=== PATIENT | female | born 1975 | race Caucasian/White ===

== ENCOUNTER → 2018-06-01 | Outpatient (CLI) | payer OTHER ==
--- NOTE | 2018-06-01 15:35 | MM ---
Reason for exam: screening (asymptomatic). Last mammogram was performed 1 year and 8 months ago. History: Family history of breast cancer in sister at age 50 and breast cancer in aunt. Took hormonal contraceptives for 10 months. Physical Findings: A clinical breast exam by your physician is recommended on an annual basis and results should be correlated with mammographic findings. MG Screening Mammo w CAD Bilateral CC and MLO view(s) were taken. Prior study comparison: September 17, 2016, bilateral MG screening mammo w CAD. September 17, 2015, left breast MG 3d work up w/cad LT. There are scattered fibroglandular densities. No significant changes when compared with prior studies. ASSESSMENT: Negative, BI-RAD 1 RECOMMENDATION: Routine screening mammogram of both breasts in 1 year.
== END | disposition home or self-care (01) ==
LOC: RADMAMWWP 07:02
PROVIDERS: ATTEND Family Medicine
DX: Z12.31 Encounter for screening mammogram for malignant neoplasm of breast (principal)
CPT/HCPCS: 77067

== ENCOUNTER → 2020-01-03 | Outpatient (CLI) | payer OTHER ==
--- NOTE | 2020-01-07 09:06 | MM ---
Reason for exam: screening (asymptomatic). Last mammogram was performed 1 year and 7 months ago. History: Family history of breast cancer in sister at age 50 and breast cancer in aunt. Took hormonal contraceptives for 10 months. Physical Findings: A clinical breast exam by your physician is recommended on an annual basis and results should be correlated with mammographic findings. MG 3D Screening Mammo W/Cad Bilateral CC and MLO view(s) were taken. Prior study comparison: June 01, 2018, bilateral MG screening mammo w CAD. September 17, 2016, bilateral MG screening mammo w CAD. The breast tissue is heterogeneously dense. This may lower the sensitivity of mammography. No significant changes when compared with prior studies. ASSESSMENT: Benign, BI-RAD 2 RECOMMENDATION: Routine screening mammogram of both breasts in 1 year.
== END | disposition home or self-care (01) ==
LOC: RADMAMWWP 10:02
PROVIDERS: ATTEND Family Medicine
DX: Z12.31 Encounter for screening mammogram for malignant neoplasm of breast (principal)
CPT/HCPCS: 77063; 77067

== ENCOUNTER → 2020-10-01 | Outpatient (CLI) | payer OTHER ==
--- NOTE | 2020-10-01 11:14 | XR ---
EXAMINATION TYPE: XR abdomen 2V DATE OF EXAM: 10/01/2020 CLINICAL DATA: 45-year-old female intermittent right flank pain, R1011, R350, N200, [id number] RUQ PAIN, MICTURITION, STONE, YCH COMPARISON: None FINDINGS: Lung bases are clear. No evidence for free intraperitoneal air. No dilated small bowel or air-fluid levels. Scattered air and stool throughout the colon extending distally to the rectum. There is mild overall stool burden. A couple phleboliths within the left side of the pelvis. Bowel content partially obscures the renal s hadows. Possible splenomegaly at 15.9 cm. Dextroconvex scoliosis of the lumbar spine. IMPRESSION: 1. No evidence of bowel obstruction or free intraperitoneal air. 2. A couple calcifications in the left side of the pelvis, likely phleboliths. 3. Possible underlying splenomegaly. Correlate with physical exam findings and ultrasound if indicate d.
== END | disposition home or self-care (01) ==
LOC: RADXRYALE 10:23
PROVIDERS: ATTEND Physician Assistant Medical
DX: R10.11 Right upper quadrant pain (principal); R35.0 Frequency of micturition; N20.0 Calculus of kidney; Z87.442 Personal history of urinary calculi
CPT/HCPCS: 74019

== ENCOUNTER → 2020-10-03 | Outpatient (CLI) | payer OTHER ==
--- NOTE | 2020-10-03 08:28 | US ---
EXAMINATION TYPE: US abdomen complete DATE OF EXAM: 10/03/2020 COMPARISON: NONE CLINICAL HISTORY: 45-year-old female R10.11 Right upper quadrant pain. Patient has pain near the end of her rib cage on both sides. TECHNIQUE: Multiple sonographic images of the abdomen are obtained. FINDINGS: EXAM MEASUREMENTS: Liver Length: 20.1 cm Gallbladder Wall: 0.2 cm CBD: 0.7 cm Spleen: 13.5 cm Right Kidney: 10.0 x 4.5 x 4.8 cm Left Kidney: 10.0 x 4.6 x 6.2 cm Mother Repairer notes:large habitus and bowel gas limits exam Pancreas: Suboptimal visualization of the pancreatic tail due to shadowing from bowel gas. Liver: difficult to penetrate, possibly due to large patient body habitus. No obvious focal liver le alexander though assessment is limited. Gallbladder: wnl Evidence for sonographic Mccain's sign: no CBD: wnl Spleen: Borderline enlarged, possible calcified granulomas. Right Kidney: wnl Left Kidney: limited views appear wnl Upper IVC: wnl Abd Aorta: limited views IMPRESSION: 1. Bile duct mildly dilated at 7 mm. Correlate with alkaline phosphatase and bilirubin levels to excl ude early biliary obstruction. 2. Limited exam due to patient body habitus. 3. Hepatomegaly (20.1 cm). Borderline splenomegaly (13.5 cm). Old calcified granulomas in the spleen. 4. No gallstones or acute cholecystitis.
== END | disposition home or self-care (01) ==
LOC: RADUSWWP 06:57
PROVIDERS: ATTEND Family Medicine
DX: K83.8 Other specified diseases of biliary tract (principal); R16.2 Hepatomegaly with splenomegaly, not elsewhere classified; Z87.442 Personal history of urinary calculi
CPT/HCPCS: 76700

== ENCOUNTER → 2021-01-21 | Outpatient (CLI) | payer OTHER ==
--- NOTE | 2021-01-21 12:50 | US ---
EXAMINATION TYPE: US abdomen complete DATE OF EXAM: 01/21/2021 COMPARISON: 10/03/2020 CLINICAL HISTORY: 45-year-old female R10.11 R16.1 [id number]. Follow up. Generalized abdominal pain. TECHNIQUE: Multiple sonographic images of the abdomen are obtained. FINDINGS: EXAM MEASUREMENTS: Liver Length: 17.8 cm Gallbladder Wall: 0.2 cm CBD: 0.5 cm Spleen: 12.3 cm Right Kidney: 10.7 x 5.5 x 4.6 cm Left Kidney: 10.7 x 4.5 x 5.6 cm [employer]iconductor Dies Loader notes:limited due to patient body habitus and overlying bowel gas Pancreas: Only a small portion of the pancreatic body is visualized. The remainder is obscured by bow el gas shadowing. Liver: Borderline in size. Appears slightly echogenic and coarse. Gallbladder: Junctional fold seen. No abnormal distention, wall thickening, pericholecystic fluid, o r shadowing calculi. Evidence for sonographic Mccain's sign: neg CBD: wnl Spleen: Numerous calcified granulomas. Kidneys: No hydronephrosis. Upper IVC: wnl Abd Aorta: Proximal and mid portions obscured by overlying bowel gas IMPRESSION: 1. Technical exam limitations due to bowel gas and patient body habitus. 2. Borderline sized liver (17.8 cm) with suspected mild hepatic steatosis. 3. No gallstones or biliary ductal dilatation. 4. Evidence of prior granulomatous disease with multiple calcified granulomas in the spleen. 5. The previous mild biliary ductal dilatation is no longer appreciated.
== END ==
LOC: RADUSWWP 09:42
PROVIDERS: ATTEND Family Medicine
DX: D73.89 Other diseases of spleen (principal)
CPT/HCPCS: 76700

== ENCOUNTER → 2021-02-18 | Outpatient (CLI) | payer OTHER ==
--- NOTE | 2021-02-20 09:52 | MM ---
Reason for exam: screening (asymptomatic). Last mammogram was performed 1 year and 2 months ago. History: Family history of breast cancer in sister at age 50 and breast cancer in aunt. Took hormonal contraceptives for 10 months. Physical Findings: A clinical breast exam by your physician is recommended on an annual basis and results should be correlated with mammographic findings. MG 3D Screening Mammo W/Cad Bilateral CC and MLO view(s) were taken. Prior study comparison: January 03, 2020, bilateral MG 3d screening mammo w/cad. June 01, 2018, bilateral MG screening mammo w CAD. The breast tissue is heterogeneously dense. This may lower the sensitivity of mammography. There is no discrete abnormality. No significant changes when compared with prior studies. ASSESSMENT: Negative, BI-RAD 1 RECOMMENDATION: Routine screening mammogram of both breasts in 1 year.
== END | disposition home or self-care (01) ==
LOC: RADMAMWWP 09:08
PROVIDERS: ATTEND Family Medicine
DX: Z12.31 Encounter for screening mammogram for malignant neoplasm of breast (principal); Z80.3 Family history of malignant neoplasm of breast
CPT/HCPCS: 77063; 77067

== ENCOUNTER → 2021-03-25 | Outpatient (CLI) | payer OTHER ==
--- NOTE | 2021-03-25 09:31 | XR ---
EXAMINATION TYPE: XR chest 2V DATE OF EXAM: 03/25/2021 COMPARISON: NONE HISTORY: Chest pain TECHNIQUE: Frontal and lateral views of the chest are obtained. FINDINGS: There is no focal air space opacity. No evidence for pneumothorax. No pleural effusion. Stable granuloma right midlung zone. The cardiac silhouette size is within normal limits. The osseous structures are grossly intact. IMPRESSION: 1. No acute cardiopulmonary process.
== END | disposition home or self-care (01) ==
LOC: RADXRYALE 09:18
PROVIDERS: ATTEND Physician Assistant Medical
DX: R07.9 Chest pain, unspecified (principal)
CPT/HCPCS: 71046

== ENCOUNTER 2021-03-31 10:37 | Observation (INO) | payer OTHER ==
[2021-03-31] MEDS ORDERED: MAGNESIUM SULFATE-D5W PMX 1 GM in DEXTROSE/WATER 1 100ML.BAG IVPB STA (11:03)
[2021-03-31] MEDS ORDERED: IPRATROPIUM-ALBUTEROL 3 ML NEB INHALATION STA (11:03)
[2021-03-31] MEDS ORDERED: predniSONE 20 MG TAB PO STA (11:03)
[2021-03-31] MEDS ORDERED: SODIUM CHLORIDE 0.9% 1,000 ML IV STA (11:03)
--- NOTE | 2021-03-31 11:08 | ED ---
SOB HPI - General Chief Complaint: Shortness of Breath Stated Complaint: Asthma/low o2 Time Seen by Provider: 03/31/21 10:43 Source: patient Mode of arrival: ambulatory Limitations: no limitations - History of Present Illness Initial Comments: 45-year-old female with history of asthma presents to the emergency department with a chief complaint of shortness of breath. States about 1 month ago her whole household had developed coitus she believes that she likely had it as well. States since then, she has developed multiple exacerbations of her asthma symptoms. She reports a bronchospastic cough that will not resolve. Also reports increased exertional dyspnea and wheezing. States that she has seen her primary care physician who gave her a 2 week prednisone taper along with a Z-Elder that was followed by 10 day course of doxycycline. She reports that she feels better for several days after the steroids but then her symptoms returned. She reports feeling chest tightness from the wheezing and her bronchospastic cough. States that she went to her primary care office this morning and had an oxygen saturation of 88% and was advised to come to the emergency department for PE rule out. Patient states while she was driving to the ED, she also had another nebulized treatment in her car - Related Data Home Medications Medication Instructions Recorded Confirmed Fluticasone/Salmeterol [Advair 1 puff INHALATION RT-BID 09/23/15 03/31/21 250-50 Diskus] Albuterol Nebulized [Ventolin 2.5 mg INHALATION RT-QID PRN 03/31/21 03/31/21 Nebulized] Ascorbic Acid [Vitamin C] 1,000 mg PO DAILY 03/31/21 03/31/21 Cholecalciferol [Vitamin D3 (25 25 mcg PO DAILY 03/31/21 03/31/21 Mcg = 1000 Iu)] Doxycycline Monohydrate [Monodox] 100 mg PO BID 03/31/21 03/31/21 Echinacea 500 mg PO DAILY 03/31/21 03/31/21 Zinc 50 mg PO DAILY 03/31/21 03/31/21 Allergies Allergy/AdvReac Type Severity Reaction Status Date / Time Iodinated Contrast Media Allergy Rash/Hives Verified 03/31/21 11:07 [Iodinated Contrast Media - IV Dye] Review of Systems ROS Statement: Those systems with pertinent positive or pertinent negative responses have been documented in the HPI. ROS Other: All systems not noted in ROS Statement are negative. Past Medical History Past Medical History: Asthma Additional Past Medical History / Comment(s): OCC MINOR ASTHMA W/ AN URI, ALLERGIES. LT SIDE PELVIC PAIN ONGOING CURRENTLY. History of Any Multi-Drug Resistant Organisms: None Reported Past Surgical History: Hysterectomy, Tonsillectomy, Tubal Ligation, Uterine Ablation Additional Past Surgical History / Comment(s): ABLATION 2007. LASIK EYES. Past Anesthesia/Blood Transfusion Reactions: No Reported Reaction Past Psychological History: No Psychological Hx Reported Smoking Status: Never smoker Past Alcohol Use History: Occasional Past Drug Use History: None Reported - Past Family History Sister(s) Family Medical History: Cancer Brother(s) Family Medical History: Cancer Mother Additional Family Medical History / Comment(s): BRAIN ANEURYSM General Exam Limitations: no limitations General appearance: alert, in no apparent distress, obese Head exam: Present: atraumatic, normocephalic, normal inspection Eye exam: Present: normal appearance, PERRL, EOMI Pupils: Present: normal accommodation ENT exam: Present: normal exam, normal oropharynx, mucous membranes moist, TM's normal bilaterally, normal external ear exam Neck exam: Present: normal inspection, full ROM. Absent: tenderness, lymphadenopathy Respiratory exam: Present: wheezes (Diffuse bilateral wheezing). Absent: rales, rhonchi, stridor, chest wall tenderness, accessory muscle use Cardiovascular Exam: Present: regular rate, normal rhythm, normal heart sounds. Absent: systolic murmur GI/Abdominal exam: Present: soft. Absent: distended, tenderness, guarding Extremities exam: Present: normal inspection, full ROM, normal capillary refill. Absent: tenderness, pedal edema, joint swelling Back exam: Present: normal inspection, full ROM. Absent: tenderness, CVA tenderness (R), CVA tenderness (L) Neurological exam: Present: alert, oriented X3 Psychiatric exam: Present: normal affect, normal mood Skin exam: Present: warm, dry, intact, normal color Course Vital Signs 03/31/21 03/31/21 03/31/21 10:39 11:15 11:17 Temperature 97.9 F Pulse Rate 83 86 Respiratory 24 22 20 Rate Blood Pressure 149/91 O2 Sat by Pulse 98 Oximetry 03/31/21 03/31/21 03/31/21 11:30 11:31 12:42 Temperature Pulse Rate 81 84 88 Respiratory 22 18 22 Rate Blood Pressure 136/65 140/73 O2 Sat by Pulse 97 98 Oximetry Medical Decision Making - Medical Decision Making 45-year-old female with history of asthma presents emergency Department with a chief complaint of shortness of breath. On physical examination, patient appears to be short of breath with diffuse bilateral wheezing. Chest x-ray reveals bronchitis with no signs of pneumonia. Laboratory work is unremarkable. Negative d-dimer. Her vital signs are within normal limits. She is saturating well above 95% on room air the whole time. Patient was given DuoNeb treatments along with 60 mg of prednisone. Also 1 g of IV mag sulfate. On reevaluation, no significant improvement in symptoms. She continues to wheeze. She did test positive for coronavirus on PCR, however I suspect this is a residual positive test because she had covid like symptoms including a fever over one month ago. I spoke to who will admit. Albtuterol q4hr prn. Case discussed with Dr Nader logan on consult - Lab Data Result diagrams: 03/31/21 11:20 03/31/21 11:20 Lab Results 03/31/21 03/31/21 03/31/21 Range/Units 11:20 11:20 11:20 WBC 9.5 (3.8-10.6) k/uL RBC 4.71 (3.80-5.40) m/uL Hgb 13.9 (11.4-16.0) gm/dL Hct 42.3 (34.0-46.0) % MCV 89.9 (80.0-100.0) fL MCH 29.6 (25.0-35.0) pg MCHC 33.0 (31.0-37.0) g/dL RDW 13.3 (11.5-15.5) % Plt Count 227 (150-450) k/uL MPV 7.6 Neutrophils % 72 % Lymphocytes % 15 % Monocytes % 5 % Eosinophils % 6 % Basophils % 1 % Neutrophils # 6.9 (1.3-7.7) k/uL Lymphocytes # 1.5 (1.0-4.8) k/uL Monocytes # 0.5 (0-1.0) k/uL Eosinophils # 0.5 (0-0.7) k/uL Basophils # 0.1 (0-0.2) k/uL PT 10.0 (9.0-12.0) sec INR 0.9 (<1.2) APTT 21.9 L (22.0-30.0) sec D-Dimer 0.27 (<0.60) mg/L FEU Sodium 137 (137-145) mmol/L Potassium 4.3 (3.5-5.1) mmol/L Chloride 104 (98-107) mmol/L Carbon Dioxide 26 (22-30) mmol/L Anion Gap 7 mmol/L BUN 15 (7-17) mg/dL Creatinine 0.80 (0.52-1.04) mg/dL Est GFR (CKD-EPI)AfAm >90 (>60 ml/min/1.73 sqM) Est GFR (CKD-EPI)NonAf 90 (>60 ml/min/1.73 sqM) Glucose 90 (74-99) mg/dL Calcium 9.9 (8.4-10.2) mg/dL Magnesium 1.8 (1.6-2.3) mg/dL Total Bilirubin 0.4 (0.2-1.3) mg/dL AST 20 (14-36) U/L ALT 16 (4-34) U/L Alkaline Phosphatase 53 (38-126) U/L Troponin I (0.000-0.034) ng/mL Total Protein 7.2 (6.3-8.2) g/dL Albumin 4.2 (3.5-5.0) g/dL Influenza Type A (PCR) (Not Detectd) Influenza Type B (PCR) (Not Detectd) RSV (PCR) (Not Detectd) SARS-CoV-2 (PCR) (Not Detectd) 03/31/21 03/31/21 Range/Units 11:20 11:20 WBC (3.8-10.6) k/uL RBC (3.80-5.40) m/uL Hgb (11.4-16.0) gm/dL Hct (34.0-46.0) % MCV (80.0-100.0) fL MCH (25.0-35.0) pg MCHC (31.0-37.0) g/dL RDW (11.5-15.5) % Plt Count (150-450) k/uL MPV Neutrophils % % Lymphocytes % % Monocytes % % Eosinophils % % Basophils % % Neutrophils # (1.3-7.7) k/uL Lymphocytes # (1.0-4.8) k/uL Monocytes # (0-1.0) k/uL Eosinophils # (0-0.7) k/uL Basophils # (0-0.2) k/uL PT (9.0-12.0) sec INR (<1.2) APTT (22.0-30.0) sec D-Dimer (<0.60) mg/L FEU Sodium (137-145) mmol/L Potassium (3.5-5.1) mmol/L Chloride (98-107) mmol/L Carbon Dioxide (22-30) mmol/L Anion Gap mmol/L BUN (7-17) mg/dL Creatinine (0.52-1.04) mg/dL Est GFR (CKD-EPI)AfAm (>60 ml/min/1.73 sqM) Est GFR (CKD-EPI)NonAf (>60 ml/min/1.73 sqM) Glucose (74-99) mg/dL Calcium (8.4-10.2) mg/dL Magnesium (1.6-2.3) mg/dL Total Bilirubin (0.2-1.3) mg/dL AST (14-36) U/L ALT (4-34) U/L Alkaline Phosphatase (38-126) U/L Troponin I <0.012 (0.000-0.034) ng/mL Total Protein (6.3-8.2) g/dL Albumin (3.5-5.0) g/dL Influenza Type A (PCR) Not Detected (Not Detectd) Influenza Type B (PCR) Not Detected (Not Detectd) RSV (PCR) Not Detected (Not Detectd) SARS-CoV-2 (PCR) Detected A (Not Detectd) - EKG Data EKG Comments: Inverted T waves in lead 3, sinus rhythm Tripped over 85, IN 166, QRS 92, QTc 425. Disposition Clinical Impression: Asthma exacerbation, COVID-19 Disposition: ADMITTED IP TO THIS HOSP Condition: Good Is patient prescribed a controlled substance at d/c from ED?: No Referrals: Rony Deras DO [Primary Care Provider] - 1-2 days Time of Disposition: 12:57
[2021-03-31 11:47] LABS: Basophils # (A) 0.1 k/uL (0-0.2); Basophils % (A) 1 %; Eosinophils # (A) 0.5 k/uL (0-0.7); Eosinophils % (A) 6 %; HCT 42.3 % (34.0-46.0); HGB 13.9 gm/dL (11.4-16.0); Lymphocytes # (A) 1.5 k/uL (1.0-4.8); Lymphocytes % (A) 15 %; MCH 29.6 pg (25.0-35.0); MCV 89.9 fL (80.0-100.0); Mean Platelet Volume 7.6; Monocytes # (A) 0.5 k/uL (0-1.0); Monocytes % (A) 5 %; Neutrophils # (A) 6.9 k/uL (1.3-7.7); Neutrophils % (A) 72 %; Platelet Count 227 k/uL (150-450); RBC 4.71 m/uL (3.80-5.40); RDW 13.3 % (11.5-15.5); WBC 9.5 k/uL (3.8-10.6)
--- NOTE | 2021-03-31 12:00 | XR ---
EXAMINATION TYPE: XR chest 2V DATE OF EXAM: 03/31/2021 COMPARISON: 03/25/2021 TECHNIQUE: PA and lateral views submitted. HISTORY: Cough FINDINGS: The lungs are clear and there is no pneumothorax, pleural effusion, or focal pneumonia. Coarsened i nterstitium correlate for bronchitis or interstitial pneumonitis. Persistent a nodule in the right up per lobe measuring 5 mm. No interstitial edema or pneumothorax. Heart size normal. Hypertrophic and d egenerative change of the spine. IMPRESSION: 1. Correlate for bronchitis or interstitial pneumonitis. 2. There is a 5 mm right upper lobe pulmonary nodule stable since 06/23/2017 and therefore likely benig n.
[2021-03-31 12:05] LABS: ALT 16 U/L (4-34); AST 20 U/L (14-36); African American GFR (CKD) >90 (>60 ml/min/1.73 sqM); Albumin 4.2 g/dL (3.5-5.0); Alkaline Phosphatase 53 U/L (38-126); Anion Gap 7 mmol/L; Blood Urea Nitrogen 15 mg/dL (7-17); Calcium 9.9 mg/dL (8.4-10.2); Carbon Dioxide 26 mmol/L (22-30); Chloride 104 mmol/L (98-107); D-Dimer 0.27 mg/L FEU (<0.60); Glucose 90 mg/dL (74-99); INR 0.9 (<1.2); Magnesium 1.8 mg/dL (1.6-2.3); Non-African American GFR(CKD) 90 (>60 ml/min/1.73 sqM); Potassium 4.3 mmol/L (3.5-5.1); Sodium 137 mmol/L (137-145); Total Bilirubin 0.4 mg/dL (0.2-1.3); Total Protein 7.2 g/dL (6.3-8.2)
[2021-03-31 12:27] LABS: Partial Thromboplastin Time 21.9 sec (22.0-30.0)
[2021-03-31] MEDS ORDERED: NALOXONE 0.4 MG/ML 1 ML VIAL IV PRN (12:52)
[2021-03-31] MEDS ORDERED: LORazepam 2 MG/ML INJ IV PRN (12:52)
[2021-03-31] MEDS ORDERED: ACETAMINOPHEN TAB 325 MG TAB PO PRN (12:52)
[2021-03-31] MEDS ORDERED: ALBUTEROL NEBULIZED 2.5 MG/3 ML INHALATION PRN (12:54)
[2021-03-31] MEDS: SODIUM CHLORIDE 0.9% 1,000 ML IV SCH (13:45)
[2021-03-31] MEDS: ALBUTEROL HFA INHALER INHALATION PRN ×3 (15:20→22:45)
[2021-03-31] MEDS ORDERED: HYDROcodone/APAP 5-325MG 1 EACH TAB PO PRN (20:20)
[2021-03-31] MEDS ORDERED: ALPRAZolam 0.25 MG TAB PO PRN (20:20)
--- NOTE | 2021-03-31 21:13 | HP ---
HISTORY AND PHYSICAL DATE OF SERVICE: 03/31/2021. CHIEF COMPLAINT: Shortness of breath and cough. HISTORY OF PRESENT ILLNESS: This 45-year-old woman with a past medical history of bronchial asthma, allergies, tonsillectomy, being followed by Dr. Deras and Dr. Elizondo in the outpatient setting, was not feeling well over the past one month. Prior to that, the patient apparently had mild intermittent bronchial asthma, well controlled and being followed by Dr. Elizondo with yearly checkup. About 1 month ago apparently, the patient's two kids got Covid 19 apparently from school and had some snuffles. Subsequently patient had increased shortness of breath and cough and sputum and wheezing. Patient's also has since minimal infection. Multiple members of family tested for Covid 19. Patient was never tested for Covid 19. During the past month, the patient finished 2 courses of antibiotics including Z-Elder and also 10 days of doxycycline. Patient also had a tapering dose of steroids. Because of lack of improvement and increased shortness of breath, patient came to [facility] and was admitted for further evaluation and treatment. The pulse ox was found to be 88% on room air today. The CBC and BMP, CMP was within normal limits and Covid 19 was positive. A chest x-ray which was done in the ER which was reviewed personally by me showed 5 mm right upper lobe pulmonary nodule and as well as possibly bilateral infiltrates suggestive of Covid 19 pneumonia. There is no history of fever, rigors. No history of headache, loss of consciousness, seizures at this time. PAST MEDICAL HISTORY: Mild intermittent bronchial asthma with allergies, hysterectomy, tonsillectomy, tubal ligation. MEDICATIONS: Medications prior to admission include: Zinc, Advair b.i.d., echinacea, doxycycline, cholecalciferol, ascorbic acid, albuterol, Habitrol. ALLERGIES: IODINATED CONTRAST DYES. FAMILY HISTORY: History of cancer and brain aneurysm. REVIEW OF SYSTEMS: ENT: No diminished vision. No diminished hearing. CARDIOVASCULAR: No angina or palpitations. RESPIRATION as mentioned earlier. GI no nausea or vomiting. : No dysuria. NERVOUS SYSTEM: No numbness. ALLERGY/IMMUNOLOGY: No asthma or hayfever. HEMATOLOGY/ONCOLOGY: No history of anemia. ENDOCRINE: No history of diabetes or hypothyroidism. CONSTITUTIONAL: As mentioned earlier. DERMATOLOGY: Negative. RHEUMATOLOGY :Negative. PSYCHIATRIC: As mentioned earlier. PHYSICAL EXAMINATION: Alert and oriented x3. Pulse 93. Blood pressure 150/86, respirations 16, temperature 98.6, pulse ox 97% on room air. HEENT: Conjunctivae normal. Oral mucosa moist. NECK is no jugular venous distention. No carotid bruit. No lymph node enlargement. CARDIOVASCULAR system: S1, S2. No S3, no S4. RESPIRATION: Breath sounds diminished in the bases. A few scattered rhonchi and crackles. Expiratory wheezing also present. ABDOMEN: Soft, nontender. No mass palpable. LEGS: No edema. No swelling. NERVOUS SYSTEM: Higher function as mentioned earlier. Moves all 4 limbs. No focal motor or sensory deficits. LYMPHATICS: No lymph nodes palpable in the neck, axillae or groin. SKIN: Some bruises present. JOINTS: No active deforming arthropathy. LABS: CBC within normal limits and D-dimer is 0.27. APTT 21.9. CBC, CMP within normal limits. Covid test is positive. ASSESSMENT: 1. Acute bronchial asthma acute exacerbation with possible acute interstitial pneumonia. 2. Possible acute COVID-19 infection with acute bilateral interstitial pneumonia with acute hypoxic respiratory failure. 3. History of chronic intermittent bronchial asthma and allergies. 4. Hysterectomy. 5. Tonsillectomy. 6. History of uterine ablation. 7. Obesity with body mass index 47. 8. FULL CODE. RECOMMENDATIONS AND DISCUSSION: This 45-year-old woman who presented with multiple complex medical issues, at this time, I recommend to continue current medications. We will continue the bronchodilators. We will initiate steroids and I would also recommend baseline CT scan of the chest and serum procalcitonin levels. Inflammatory markers of Covid 19 will be ordered. Ensure oxygenation. Incentive spirometry. DVT prophylaxis. The prognosis guarded because of multiple complex medical issues. Further recommendations to follow. A copy of this dictation being forwarded to Dr. Deras who is the primary physician. We will consult Dr. Elizondo as well. MMODL / IJN: [id number] / MTDD
[2021-03-31] MEDS: ZINC SULFATE 220 MG CAP PO SCH (21:37)
--- NOTE | 2021-03-31 21:49 | CT ---
EXAMINATION TYPE: CT chest wo con DATE OF EXAM: 03/31/2021 COMPARISON: None HISTORY: Pneumonia, +covid. CT DLP: 732.2 mGycm Automated exposure control for dose reduction was used. Images obtained from the thoracic inlet to the diaphragm without contrast. There are small mediastinal calcified granulomata. There are bilateral calcified granulomata at the p ulmonary migel. There is no hilar mass. Heart size is normal. There is no pericardial effusion. Thorac ic aorta is intact. There is no evidence of aneurysm. There is 7 mm calcified granuloma in the lateral right upper lobe. There is no pleural effusion. Ther e is no pneumothorax. The other lung herrera are clear. Upper abdominal soft tissues are intact. There is some spurring in the thoracic spine. There is no compression fracture. Sternum is intact. IMPRESSION: Old granulomatous disease. No acute lung disease.
[2021-03-31] MEDS: guaiFENesin-DM 100-10MG/5ML 10 ML CUP PO PRN (22:19)
[2021-03-31] MEDS: AZITHROMYCIN 500 MG in SODIUM CHLORIDE 0.9% 250 ML IVPB SCH (22:21)
[2021-03-31 22:30] LABS: C Reactive Protein 1.2 mg/dL (<1.0)
[2021-03-31] MEDS ORDERED: ONDANSETRON 4 MG/2 ML VIAL IVP PRN (22:51)
[2021-04-01] MEDS: ALBUTEROL HFA INHALER INHALATION PRN ×3 (01:32→08:24)
[2021-04-01] MEDS: SODIUM CHLORIDE 0.9% 1,000 ML IV SCH ×2 (01:55→17:36)
[2021-04-01 01:56] LABS: Appearance,Urine Clear (Clear); Bilirubin,Urine Negative (Negative); Blood,Urine Negative (Negative); Color,Urine Colorless; Glucose,Urine (UA) Negative (Negative); Ketones,Urine Negative (Negative); Leukocyte Esterase,Urine Negative (Negative); Nitrite,Urine Negative (Negative); Protein,Urine Negative (Negative); Specific Gravity,Urine 1.004 (1.001-1.035); Urobilinogen,Urine <2.0 mg/dL (<2.0)
[2021-04-01] MEDS: guaiFENesin-DM 100-10MG/5ML 10 ML CUP PO PRN (05:58)
[2021-04-01 07:17] LABS: Basophils # (A) 0.1 k/uL (0-0.2); Basophils % (A) 1 %; Eosinophils # (A) 0.2 k/uL (0-0.7); Eosinophils % (A) 2 %; HCT 40.1 % (34.0-46.0); HGB 13.1 gm/dL (11.4-16.0); Lymphocytes # (A) 1.4 k/uL (1.0-4.8); Lymphocytes % (A) 12 %; MCH 29.6 pg (25.0-35.0); MCHC 32.5 g/dL (31.0-37.0); Mean Platelet Volume 7.7; Monocytes # (A) 0.6 k/uL (0-1.0); Monocytes % (A) 5 %; Neutrophils # (A) 9.4 k/uL (1.3-7.7); Neutrophils % (A) 79 %; Platelet Count 226 k/uL (150-450); RBC 4.41 m/uL (3.80-5.40); RDW 13.4 % (11.5-15.5); WBC 11.8 k/uL (3.8-10.6)
[2021-04-01 07:34] LABS: African American GFR (CKD) >90 (>60 ml/min/1.73 sqM); Anion Gap 7 mmol/L; Blood Urea Nitrogen 13 mg/dL (7-17); Carbon Dioxide 26 mmol/L (22-30); Chloride 104 mmol/L (98-107); Glucose 102 mg/dL (74-99); Non-African American GFR(CKD) 81 (>60 ml/min/1.73 sqM); Potassium 4.1 mmol/L (3.5-5.1); Sodium 137 mmol/L (137-145)
[2021-04-01] MEDS ORDERED: SYMBICORT 80-4.5 MCG INHALER INHALATION SCH (08:00)
[2021-04-01] MEDS: ASCORBIC ACID 500 MG TAB PO SCH (08:45)
[2021-04-01] MEDS: ZINC SULFATE 220 MG CAP PO SCH (08:45)
[2021-04-01] MEDS: PANTOPRAZOLE 40 MG TABLET PO SCH (08:46)
[2021-04-01] MEDS: ENOXAPARIN 40 MG/0.4 ML SYRINGE SQ SCH (08:46)
[2021-04-01] MEDS: ALBUTEROL HFA INHALER INHALATION SCH ×3 (11:53→20:38)
[2021-04-01] MEDS: methylPREDNISolone SOD SUCCI 125 MG/2 ML VIAL IV SCH ×3 (12:09→23:12)
[2021-04-01 13:15] LABS: Ferritin 203.4 ng/mL (10.0-291.0)
--- NOTE | 2021-04-01 13:31 | P.CNPUL ---
History of Present Illness Consult date: 04/01/21 Requesting physician: Randall Agudelo Reason for consult: dyspnea, abnormal CXR/CT Chief complaint: Shortness of breath, cough, congestion History of present illness: This a very pleasant 45-year-old female patient who follows with Dr. Deras as her primary care provider. He also follows with Dr. Le Suarez in our office for mild intermittent chronic bronchial asthma. She's been on albuterol only. She has not used over a year. About one month ago however she developed increasing shortness of breath, cough and congestion. She was treated with steroids and his Z-Elder eventually follow with doxycycline. Her whole household had developed COVID-19. She believes she had it at time as well. She had not received vaccine. Yesterday she was seen by her PCP office and was found to have O2 saturating 88% on was referred to the emergency room for the same. This x-ray revealed bronchitis or interstitial pneumonitis. There is a 5 mm right upper lobe pulmonary nodule/granuloma present since 2017. CAT scan revealed no acute pulmonary process. Old granulomatous disease again appreciated. White count 11.8. Hemoglobin 13.1. Lymphocytes 1.4. D-dimer 0.27. Sodium 137. Potassium 4.1. Creatinine 0.87. Influenza screen negative. Coronavirus positive. She is initiated on Lovenox, albuterol, vitamin supplements. Antibiotics in the form of ceftriaxone and azithromycin. She is seen today in consultation on the regular medical floor. Currently sitting up in a chair at the bedside. Awake and alert in no acute distress. Some dyspnea on exertion. Some dry nonproductive cough. Maintaining O2 saturations at 93% on room air. Afebrile. Hemodynamically stable. Review of Systems REVIEW OF SYSTEMS: CONSTITUTIONAL: Denies any recent significant weight loss or weight gain. EYES: Denies change in vision. EARS, NOSE, MOUTH, THROAT: Denies headaches, denies sore throat. CARDIOVASCULAR: Denies chest pain, palpitations or syncopal episodes. RESPIRATORY: Positive for shortness of breath, cough, congestion no hemoptysis. GASTROINTESTINAL: Denies change in appetite, denies abdominal pain GENITOURINARY: Denies hematuria, denies infections. MUSKULOSKELETAL: Denies pain, denies swelling. INTEGUMENTARY: Denies rash, denies eczema. NEUROLOGICAL: Denies recent memory loss, no recent seizure activity. PSYCHIATRIC: Denies anxiety, denies depression. HEMATOLOGIC/LYMPHATIC: Denies anemia, denies enlarged lymph nodes. Past Medical History Past Medical History: Asthma Additional Past Medical History / Comment(s): OCC MINOR ASTHMA W/ AN URI, ALLERGIES. LT SIDE PELVIC PAIN ONGOING CURRENTLY. History of Any Multi-Drug Resistant Organisms: None Reported Past Surgical History: Hysterectomy, Tonsillectomy, Tubal Ligation, Uterine Ablation Additional Past Surgical History / Comment(s): ABLATION 2007. LASIK EYES. Past Anesthesia/Blood Transfusion Reactions: No Reported Reaction Past Psychological History: No Psychological Hx Reported Smoking Status: Never smoker Past Alcohol Use History: Occasional Past Drug Use History: None Reported - Past Family History Sister(s) Family Medical History: Cancer Brother(s) Family Medical History: Cancer Mother Additional Family Medical History / Comment(s): BRAIN ANEURYSM Medications and Allergies Home Medications Medication Instructions Recorded Confirmed Type Fluticasone/Salmeterol [Advair 1 puff INHALATION RT-BID 09/23/15 03/31/21 History 250-50 Diskus] Albuterol Nebulized [Ventolin 2.5 mg INHALATION RT-QID PRN 03/31/21 03/31/21 History Nebulized] Ascorbic Acid [Vitamin C] 1,000 mg PO DAILY 03/31/21 03/31/21 History Cholecalciferol [Vitamin D3 (25 25 mcg PO DAILY 03/31/21 03/31/21 History Mcg = 1000 Iu)] Doxycycline Monohydrate [Monodox] 100 mg PO BID 03/31/21 03/31/21 History Echinacea 500 mg PO DAILY 03/31/21 03/31/21 History Zinc 50 mg PO DAILY 03/31/21 03/31/21 History Allergies Allergy/AdvReac Type Severity Reaction Status Date / Time Iodinated Contrast Media Allergy Rash/Hives Verified 03/31/21 11:07 [Iodinated Contrast Media - IV Dye] Physical Exam Vitals: Vital Signs Temp Pulse Pulse Resp BP BP Pulse Ox 04/01/21 10:23 98.4 F 100 15 118/80 93 L 04/01/21 05:37 97.9 F 99 19 131/79 92 L 04/01/21 03:27 98.0 F 86 20 122/63 95 03/31/21 21:32 97.9 F 76 147/69 96 03/31/21 17:36 98.6 F 93 16 150/86 96 03/31/21 16:19 98.2 F 81 20 135/79 98 03/31/21 14:00 81 20 135/65 Intake and Output 03/31/21 04/01/21 04/01/21 22:59 06:59 14:59 Intake Total 240 Output Total 400 Balance 240 -400 Intake: Oral 240 Output: Urine 400 Other: # Voids 1 2 1 Weight 136.078 kg GENERAL EXAM: Alert, active, very pleasant 45-year-old female patient, on room air, fairly comfortable in no apparent distress. HEAD: Normocephalic. EYES: Normal reaction of pupils, equal size. NOSE: Clear with pink turbinates. THROAT: No erythema or exudates. NECK: No masses, no JVD. CHEST: No chest wall deformity. LUNGS: Equal air entry with few scattered rhonchi, end expiratory wheeze. CVS: S1 and S2 normal with no audible murmur, regular rhythm. ABDOMEN: No hepatosplenomegaly, normal bowel sounds, no guarding or rigidity. SPINE: No scoliosis or deformity SKIN: No rashes CENTRAL NERVOUS SYSTEM: No focal deficits, tone is normal in all 4 extremities. EXTREMITIES: There is no peripheral edema. No clubbing, no cyanosis. Peripheral pulses are intact. Results - Laboratory Findings CBC and BMP: 04/01/21 06:01 04/01/21 06:01 PT/INR, D-dimer PT 10.0 sec (9.0-12.0) 03/31/21 11:20 INR 0.9 (<1.2) 03/31/21 11:20 D-Dimer 0.27 mg/L FEU (<0.60) 03/31/21 11:20 Abnormal lab findings: Abnormal Labs 03/31/21 03/31/21 03/31/21 11:20 11:20 21:00 WBC Neutrophils # APTT 21.9 L Glucose C-Reactive Protein 1.2 H SARS-CoV-2 (PCR) Detected A 04/01/21 04/01/21 06:01 06:01 WBC 11.8 H Neutrophils # 9.4 H APTT Glucose 102 H C-Reactive Protein SARS-CoV-2 (PCR) - Diagnostic Findings Chest x-ray: image reviewed CT scan - chest: image reviewed Assessment and Plan Assessment: 1 Acute hypoxic respiratory failure secondary to acute COVID-19 pneumonitis 2 Acute exacerbation of mild intermittent chronic bronchial asthma secondary to above, failed outpatient therapy 3 History of granuloma of the right upper lobe, unchanged as 2017 Plan: The patient was seen and evaluated by Dr. Elizondo Chest x-ray, CAT scan, labs reviewed Continue azithromycin, discontinue ceftriaxone Add Symbicort Add IV Solu-Medrol 60 mg every 6 hours Add Singulair Add scheduled albuterol treatments Add Protonix Increase her activity as tolerated Probable discharge in the a.m. We will continue to follow and make further recommendations based on her clinical status I, the cosigning physician, performed a history & physical examination of the patient. Lungs sounds with few scattered rhonchi, end expiratory wheeze. Maintaining good O2 saturations in the 90s on room air. I discussed the asses sment and plan of care with my nurse practitioner, Amaya Devlin. I attest to the above consultation as dictated by her. Time with Patient: Greater than 30
[2021-04-01 16:04] VITALS: RESP 16
--- NOTE | 2021-04-01 18:25 | PN ---
PROGRESS NOTE DATE OF SERVICE: 04/01/2021 This 45-year-old woman who was admitted with acute bronchial asthma, acute exacerbation, also has acute purulent tracheobronchitis. The patient was also COVID- positive, but the patient had extensive evaluation to rule out severe COVID-19 at this time. Only CRP is mildly elevated otherwise. The patient is on broad-spectrum IV antibiotics. Steroids also have been initiated by Dr. Elizondo. No chest pain. No palpitations. No fever. Incessant cough is reported. PHYSICAL EXAMINATION: Alert and oriented x3. Pulse 77, blood pressure 113/66, respirations 16, temperature 98.2, pulse ox 94% on room air. HEENT: Conjunctivae normal. NECK: No jugular venous distention. CARDIOVASCULAR SYSTEM: S1, S2 muffled. RESPIRATORY SYSTEM: Breath sounds diminished at the bases. Scattered rhonchi and crackles. ABDOMEN: Soft, non-tender. LEGS: No edema. No swelling. NERVOUS SYSTEM: No focal deficit. LABS: WBC 11.2, hemoglobin 13.1. ASSESSMENT: 1. Acute bronchial asthma, acute exacerbation, with possible acute bronchopneumonia. 2. Possible acute COVID-19 infection with no evidence of any COVID-19 pneumonia. 3. History of chronic intermittent bronchial asthma and allergies. 4. Hysterectomy. 5. Tonsillectomy. 6. History of uterine ablation. 7. Obesity with body mass index of 47. 8. FULL CODE. RECOMMENDATIONS AND DISCUSSION: I recommend to continue current medications, continue with the monitoring, symptomatic treatment. Continue with steroids. Continue the rest of the medications. The patient is not a candidate for remdesivir at this time. Broad-spectrum IV antibiotics have been given. Symptomatic treatment. Otherwise, guarded prognosis because of multiple complex medical issues. Further recommendations to follow. MMODL / IJN: [id number] /
[2021-04-01] MEDS: AZITHROMYCIN 500 MG in SODIUM CHLORIDE 0.9% 250 ML IVPB SCH (19:50)
[2021-04-01] MEDS: SYMBICORT 160-4.5 MCG INHALER INHALATION SCH (20:38)
[2021-04-01] MEDS ORDERED: MONTELUKAST 10 MG TAB PO SCH (21:00)
[2021-04-02] MEDS: ALBUTEROL HFA INHALER INHALATION PRN (03:04)
[2021-04-02] MEDS: methylPREDNISolone SOD SUCCI 125 MG/2 ML VIAL IV SCH ×2 (05:41→11:56)
[2021-04-02] MEDS: SODIUM CHLORIDE 0.9% 1,000 ML IV SCH (05:45)
[2021-04-02] MEDS: ALBUTEROL HFA INHALER INHALATION SCH ×2 (08:21→11:58)
[2021-04-02] MEDS: SYMBICORT 160-4.5 MCG INHALER INHALATION SCH (08:21)
[2021-04-02] MEDS: ASCORBIC ACID 500 MG TAB PO SCH (08:36)
[2021-04-02] MEDS: ENOXAPARIN 40 MG/0.4 ML SYRINGE SQ SCH (08:36)
[2021-04-02] MEDS: ZINC SULFATE 220 MG CAP PO SCH (08:36)
[2021-04-02] MEDS: PANTOPRAZOLE 40 MG TABLET PO SCH (08:36)
[2021-04-02 10:30] VITALS: BP 137/87; PULSE 80; TEMP 98.2
--- NOTE | 2021-04-02 12:33 | P.PN ---
Subjective Progress Note Date: 04/02/21 Principal diagnosis: COVID-19 pneumonitis This a very pleasant 45-year-old female patient who follows with Dr. Deras as her primary care provider. He also follows with Dr. Le Suarez in our office for mild intermittent chronic bronchial asthma. She's been on albuterol only. She has not used over a year. About one month ago however she developed increasing shortness of breath, cough and congestion. She was treated with steroids and his Z-Elder eventually follow with doxycycline. Her whole household had developed COVID-19. She believes she had it at time as well. She had not received vaccine. Yesterday she was seen by her PCP office and was found to have O2 saturating 88% on was referred to the emergency room for the same. This x-ray revealed bronchitis or interstitial pneumonitis. There is a 5 mm right upper lobe pulmonary nodule/granuloma present since 2017. CAT scan revealed no acute pulmonary process. Old granulomatous disease again appreciated. White count 11.8. Hemoglobin 13.1. Lymphocytes 1.4. D-dimer 0.27. Sodium 137. Potassium 4.1. Creatinine 0.87. Influenza screen negative. Coronavirus positive. She is initiated on Lovenox, albuterol, vitamin supplements. Antibiotics in the form of ceftriaxone and azithromycin. She is seen today in consultation on the regular medical floor. Currently sitting up in a chair at the bedside. Awake and alert in no acute distress. Some dyspnea on exertion. Some dry nonproductive cough. Maintaining O2 saturations at 93% on room air. Afebrile. Hemodynamically stable. The patient is seen today 04/02/2021 in follow-up in the regular medical floor. She is currently sitting up in a chair at the bedside. Awake and alert in no acute distress. States she is breathing quite a bit better today. She is maintaining O2 saturations in the 90s on room air. She's been afebrile. Hemodynamically stable. Blood and sputum cultures reveal no growth. No new labs today. She is continued on Symbicort, albuterol, IV Solu-Medrol, azithromycin. Lovenox for DVT prophylaxis. Objective - Vital Signs Vital signs: Vital Signs Temp 98.2 F 04/02/21 10:29 Pulse 80 04/02/21 10:29 Resp 16 04/02/21 10:29 BP 137/87 05/13/21 10:29 Pulse Ox 90 L 04/02/21 10:29 Intake & Output 04/01/21 04/02/21 04/02/21 18:59 06:59 18:59 Other: # Voids 5 - Exam GENERAL EXAM: Alert, active, very pleasant 45-year-old female patient, on room air, fairly comfortable in no apparent distress. HEAD: Normocephalic. EYES: Normal reaction of pupils, equal size. NOSE: Clear with pink turbinates. THROAT: No erythema or exudates. NECK: No masses, no JVD. CHEST: No chest wall deformity. LUNGS: Equal air entry with end expiratory wheeze. CVS: S1 and S2 normal with no audible murmur, regular rhythm. ABDOMEN: No hepatosplenomegaly, normal bowel sounds, no guarding or rigidity. SPINE: No scoliosis or deformity SKIN: No rashes CENTRAL NERVOUS SYSTEM: No focal deficits, tone is normal in all 4 extremities. EXTREMITIES: There is no peripheral edema. No clubbing, no cyanosis. Periph eral pulses are intact. - Labs CBC & Chem 7: 04/01/21 06:01 04/01/21 06:01 Labs: Microbiology - Last 24 Hours (Table) 04/01/21 04:01 Gram Stain - Preliminary Sputum Sputum Culture - Preliminary 03/31/21 21:00 Blood Culture - Preliminary Blood No Growth after 24 hours Assessment and Plan Assessment: 1 Acute hypoxic respiratory failure secondary to acute COVID-19 pneumonitis 2 Acute exacerbation of mild intermittent chronic bronchial asthma secondary to above, failed outpatient therapy 3 History of granuloma of the right upper lobe, unchanged as 2017 Plan: The patient was seen and evaluated by Dr. Caro Duckworth for discharge from the pulmonary standpoint Complete a 21 day prednisone taper starting at 30 mg daily for 5 days Complete 4 more days of azithromycin Continue home Advair and albuterol Singulair was added Follow-up in the office in 1-2 weeks' time I, the cosigning physician, performed a history & physical examination of the patient. Lungs sounds with end expiratory wheeze. Maintaining good O2 saturations in the 90s on room air. I discussed the assessment and plan of care with my nurse practitioner, Amaya Devlin. I attest to the above note as dictated by her.
--- NOTE | 2021-04-03 07:01 | DS ---
DISCHARGE SUMMARY FINAL DIAGNOSIS: 1. Acute bronchial asthma acute exacerbation with possible acute bronchopneumonia. 2. Acute COVID-19 infection with no evidence of COVID-19 pneumonia. 3. History of chronic intermittent bronchial asthma and allergies. 4. Hysterectomy. 5. History of tonsillectomy. 6. History of uterine ablation. 7. Obesity with body mass of 47. 8. FULL CODE. DISPOSITION: The patient will be discharged in stable condition with guarded prognosis. HISTORY OF PRESENT ILLNESS: This 45-year-old woman with a past medical history of multiple medical problems as mentioned earlier, being followed by Dr. Deras in the outpatient setting was admitted with shortness of breath and acute bronchial asthma, acute exacerbation, and tracheobronchitis. Patient treated with antibiotics, bronchodilators, steroids. Dr. Elizondo saw the patient. The patient was also recently COVID-19 positive, however, inflammatory markers were not elevated and there was no evidence of pneumonia per se. The patient improved significantly with treatment. Patient discharged home in stable condition. Guarded prognosis. PHYSICAL EXAMINATION: On exam vitals stable. Cardiovascular S1 and S2. Abdomen soft. Nervous system with no focal deficits. DISCHARGE INSTRUCTIONS: Discharge diet cardiac. Activity limited until followup. Follow up with Dr. Deras in 2-3 days. Follow up with Dr. Elizondo as recommended. MEDICATIONS: 1. Echinacea as before. 2. Albuterol t.i.d. and p.r.n. 3. Vitamin C 1000 mg p.o. daily. 4. Vitamin D3 25 mcg p.o. daily. 5. Zinc 50 mg p.o. daily. 6. Prednisone 30 mg for 5 days, 20 for 5 days, 10 for 5 days and 5 mg for 6 days and then stop. 7. Protonix 40 mg daily. 8. Singulair 10 mg q.h.s. 9. Symbicort 4.5 two puffs b.i.d. 10.Ventolin 2 puffs q.i.d. p.r.n. 11.Zithromax 500 mg p.o. daily for 5 days. Once again the patient will be discharged in stable condition with guarded prognosis. MMODL / IJN: [id number] /
== END 2021-04-02 14:11 | disposition home or self-care (01) ==
LOC: EC 10:37 → 4SSUR 12:55
PROVIDERS: ADMIT Hospitalist; ATTEND Hospitalist
DX: U07.1 COVID-19 (principal); J96.01 Acute respiratory failure with hypoxia; J45.901 Unspecified asthma with (acute) exacerbation; J84.10 Pulmonary fibrosis, unspecified; R10.2 Pelvic and perineal pain; E66.9 Obesity, unspecified; Z68.42 Body mass index [BMI] 45.0-49.9, adult; Z91.041 Radiographic dye allergy status; Z98.890 Other specified postprocedural states; Z90.710 Acquired absence of both cervix and uterus; Z87.720 Personal history of (corrected) congenital malformations of eye; Z82.49 Family history of ischemic heart disease and other diseases of the circulatory system; Z80.9 Family history of malignant neoplasm, unspecified
CPT/HCPCS: 96376; 96361 ×4; 96366 ×2; 96367; 96372; 96375 ×2; 96365; 99285; 36415; 94640 ×6; 93005; 85379; 80053; 80048; 85652; 82728; 83615; 83735; 84484; 85025 ×2; 85610; 85730; 86140; 81003; 87040; 87070; 87205; 84145; 87636; 71046; 71250; G0378 ×3; J2930 ×2; J2405; J0456 ×2; J1650 ×2; J0696; J3475; J7512

== ENCOUNTER → 2022-02-16 | Outpatient (CLI) | payer OTHER ==
[2022-02-16 14:30] LABS: Basophils % (A) 1 %; Eosinophils # (A) 0.4 k/uL (0-0.7); Eosinophils % (A) 5 %; HCT 43.3 % (34.0-46.0); HGB 13.8 gm/dL (11.4-16.0); Lymphocytes # (A) 1.5 k/uL (1.0-4.8); Lymphocytes % (A) 23 %; MCH 30.1 pg (25.0-35.0); MCHC 31.8 g/dL (31.0-37.0); MCV 94.7 fL (80.0-100.0); Mean Platelet Volume 8.2; Monocytes # (A) 0.4 k/uL (0-1.0); Monocytes % (A) 7 %; Neutrophils # (A) 4.1 k/uL (1.3-7.7); Neutrophils % (A) 62 %; Platelet Count 220 k/uL (150-450); RBC 4.57 m/uL (3.80-5.40); RDW 13.5 % (11.5-15.5); WBC 6.6 k/uL (3.8-10.6)
[2022-02-16 14:52] LABS: Total Eosinophil Count 330 #EOS/uL (150-300)
== END | disposition home or self-care (01) ==
LOC: LABWHC1 10:19
PROVIDERS: ATTEND Internal Medicine
DX: J45.909 Unspecified asthma, uncomplicated (principal)
CPT/HCPCS: 36415; 82785; 85008; 85025; 86003

== ENCOUNTER → 2022-03-24 | Outpatient (CLI) | payer OTHER ==
--- NOTE | 2022-03-24 12:22 | CA ---
Transthoracic Echo Report Name: Scarlet Latham Age: 46 Gender: F : 1975 Exam Date: 03/24/2022 11:58 Exam Location: [facility] Ht (in): 64 Wt (lb): 290 Ordering Physician: Temo Elizondo MD Attending/Referring Phys: [facility] Sales Consultant Sylvia Velasco RDCS Procedure CPT: Indications: R06.09 Cardiac Hx: No Cardiac HX, Asthma Technical Quality: Good Contrast 1: N/A Total Dose (mL): Contrast 2: Total Dose (mL): MEASUREMENTS (Male / Female) Normal Values 2D ECHO LV Diastolic Diameter PLAX 4.8 cm 4.2 - 5.9 / 3.9 - 5.3 cm LV Systolic Diameter PLAX 3.9 cm IVS Diastolic Thickness 0.9 cm 0.6 - 1.0 / 0.6 - 0.9 cm LVPW Diastolic Thickness 1.2 cm 0.6 - 1.0 / 0.6 - 0.9 cm LV Relative Wall Thickness 0.5 RV Internal Dim ED PLAX 3.5 cm LA Systolic Diameter LX 4.0 cm 3.0 - 4.0 / 2.7 - 3.8 cm LA Volume 75.6 cm??? 18 - 58 / 22 - 52 cm??? M-MODE Aortic Root Diameter MM 3.1 cm LA Systolic Diameter MM 3.9 cm LA Ao Ratio MM 1.3 MV E Point Septal Separation 0.2 cm AV Cusp Separation MM 2.3 cm DOPPLER MV Area PHT 4.5 cm??? Mitral E Point Velocity 70.7 cm/s Mitral A Point Velocity 63.4 cm/s Mitral E to A Ratio 1.1 MV Deceleration Time 169.2 ms MV E' Velocity 9.7 cm/s Mitral E to MV E' Ratio 7.3 TR Peak Velocity 203.8 cm/s TR Peak Gradient 16.6 mmHg Right Ventricular Systolic Press 21.6 mmHg FINDINGS Left Ventricle Normal Left ventricular size, wall thickness, systolic function with no obvious regional wall motion abnormalities. Normal Left ventricular diastolic filling pattern. Right Ventricle Normal right ventricular size and function. Right ventricular systolic pressure within normal limits. Right Atrium Normal right atrial size. Left Atrium Mildly increased left atrial diameter. Severely increased left atrial volume. Mitral Valve Mild mitral regurgitation. Aortic Valve Trileaflet aortic valve. Tricuspid Valve Mild tricuspid regurgitation. Pulmonic Valve Structurally normal pulmonic valve. Pericardium Normal pericardium. Aorta Normal size aortic root and proximal ascending aorta. CONCLUSIONS Preserved LV systolic function Previewed by: Dr. Hernan Goncalves MD (Electronically Signed) Final Date: 24 Mar 2022 12:21
== END | disposition home or self-care (01) ==
LOC: RADECHMAIN 11:33
PROVIDERS: ATTEND Internal Medicine
DX: R06.09 Other forms of dyspnea (principal)
CPT/HCPCS: 93306

== ENCOUNTER → 2022-05-03 | Outpatient (CLI) | payer OTHER ==
[2022-05-03 11:20] LABS: ALT 43 U/L (8-44); AST 23 U/L (13-35); African American GFR (CKD) 91.8 (60.0-200.0); Albumin 3.9 g/dL (3.8-4.9); Albumin/Globulin Ratio 1.82 (1.60-3.17); Alkaline Phosphatase 39 U/L (41-126); BUN/Creat Ratio 16.44 Ratio (12.00-20.00); Blood Urea Nitrogen 14.4 mg/dL (9.0-27.0); Calcium 9.1 mg/dL (8.7-10.3); Chloride 105 mmol/L (96-109); Chol/HDL Ratio 3.12 Ratio; Globulin 2.1 g/dL (1.6-3.3); Glucose 89 mg/dL (70-110); LDL Cholesterol,Calculated 93.8 mg/dL (0.0-131.0); Non-African American GFR(CKD) 79.2 (60.0-200.0); Potassium 4.1 mmol/L (3.5-5.5); Sodium 139 mmol/L (135-145)
--- NOTE | 2022-05-04 20:00 | MM ---
Reason for Exam: Screening (asymptomatic). Last mammogram was performed 1 year(s) and 3 month(s) ago. Patient History: Menarche at age 12. First Full-Term at age 20. Hysterectomy at age 32. Patient has history of breast feeding. Hormonal Contraceptives for 10 months. Maternal aunt had breast cancer. Sister had breast cancer, age 50. Risk Values: Dina 5 year model risk: 1.6%. NCI Lifetime model risk: 17.3%. Prior Study Comparison: 06/01/2018 Bilateral Screening Mammogram, [facility]. 01/03/2020 Bilateral Screening Mammogram, [facility]. 02/18/2021 Bilateral Screening Mammogram, [facility]. Tissue Density: The breast tissue is heterogeneously dense. This may lower the sensitivity of mammography. Findings: Analyzed By CAD. Breast density shows slight interval increase from prior exams. A few areas of asymmetric density in the right breast are more defined but no persisting abnormality is identified on 3-D images. A precautionary six-month follow-up is recommended to reassess these densities. Otherwise, no significant change from prior exams. Overall Assessment: Probably benign, BI-RAD 3 Management: Diagnostic Mammogram of the right breast in 6 months. 1. Six-month follow-up diagnostic right breast mammogram to reassess a few asymmetric densities, likely superimposition shadow. 3-D images show no definite persisting abnormality. 2. Patient should continue monthly self breast exams. 3. This exam should not preclude additional follow-up of suspicious palpable abnormalities. Electronically signed and approved by: Ulises Montenegro M.D. Radiologist
== END | disposition home or self-care (01) ==
LOC: RADMAMWWP 07:07
PROVIDERS: ATTEND Family Medicine
DX: Z00.00 Encounter for general adult medical examination without abnormal findings (principal); Z12.31 Encounter for screening mammogram for malignant neoplasm of breast; E55.9 Vitamin D deficiency, unspecified; Z80.3 Family history of malignant neoplasm of breast
CPT/HCPCS: 77063; 77067; 80053; 80061; 82306; 84443

== ENCOUNTER → 2022-06-25 | Day surgery (SDC) | payer OTHER ==
[~2022-06-25] MED LIST: LACTATED RINGERS 1,000 ML IV SCH; LIDOCAINE 2% INJ 20 MG/ML (2 ML VIAL) ONE; PROPOFOL 10 MG/ML 20 ML VIAL IV ONE
[2022-06-25 07:58] VITALS: RESP 16; TEMP 97.2
--- NOTE | 2022-06-25 09:04 | P.PCN ---
Date of Procedure: 06/25/22 Procedure(s) Performed: BRIEF HISTORY: Patient is a 46-year-old pleasant female scheduled for an elective colonoscopy as a part of screening for colorectal neoplasia. PROCEDURE PERFORMED: Colonoscopy. PREOPERATIVE DIAGNOSIS: Screening for colon cancer. IV sedation per Anesthesia. PROCEDURE: After informed consent was obtained, the patient, was brought into the endoscopy unit. IV sedation was administered by Anesthesia under continuous monitoring. Digital rectal examination was normal. Initially the Olympus CF-160 flexible video colonoscope was then inserted in the rectum, gradually advanced into the cecum without any difficulty. Careful examination was performed as the scope was gradually being withdrawn. Ileocecal valve and the appendiceal orifice were visualized and appeared normal. Prep was excellent. Mucosa of the cecum, ascending colon, transverse colon, descending colon, sigmoid colon, and rectum appeared normal. Scattered sigmoid diverticulosis. IMPRESSION: Normal-appearing colon from rectum to cecum with no evidence of colorectal neoplasia . Scattered sigmoid diverticulosis. RECOMMENDATIONS: Findings of this examination were discussed with the patient as well as his family. She was advised to have a repeat screening colonoscopy in 10 years..
[2022-06-25 09:36] VITALS: BP 107/66; PULSE 56
== END ==
LOC: ORWHC2ENDO 07:34
PROVIDERS: ATTEND Internal Medicine Gastroenterology
DX: Z12.11 Encounter for screening for malignant neoplasm of colon (principal); K57.30 Diverticulosis of large intestine without perforation or abscess without bleeding; Z79.899 Other long term (current) drug therapy; J45.909 Unspecified asthma, uncomplicated; Z90.710 Acquired absence of both cervix and uterus; Z91.041 Radiographic dye allergy status
CPT/HCPCS: J2704; J2001; G0121

== ENCOUNTER → 2023-05-04 | Outpatient (CLI) | payer OTHER ==
--- NOTE | 2023-05-05 08:41 | MM ---
Reason for Exam: Screening (asymptomatic). Last screening mammogram was performed 12 month(s) ago. Patient History: Menarche at age 12. First Full-Term at age 20. Hysterectomy at age 32. Patient has history of breast feeding. Hormonal Contraceptives for 10 months. Maternal aunt had breast cancer. Sister had breast cancer, age 50. Risk Values: Dina 5 year model risk: 1.7%. NCI Lifetime model risk: 17.1%. Prior Study Comparison: 01/03/2020 Bilateral Screening Mammogram, [facility]. 02/18/2021 Bilateral Screening Mammogram, [facility]. 05/03/2022 Bilateral MG 3D screening mammo w/cad, [facility]. Tissue Density: The breast tissue is heterogeneously dense. This may lower the sensitivity of mammography. Findings: Analyzed By CAD. There is no suspicious group of microcalcifications or new suspicious mass in either breast. Stable asymmetries within the right breast on the CC view. Overall Assessment: Benign, BI-RAD 2 Management: Screening Mammogram of both breasts in 1 year. A clinical breast exam by your physician is recommended on an annual basis and results should be correlated with mammographic findings. Note on Dina scores and lifetime risk: 1. A Dina score greater than 3% is considered moderate risk. If this is the case, consider specialist referral to assess eligibility for a risk reducing agent. If overall lifetime risk for the development of breast cancer is 20% or higher, the patient may qualify for future screening with alternating mammogram and breast MRI. Electronically signed and approved by: Alan Everett D.O.
== END | disposition home or self-care (01) ==
LOC: RADMAMWWP 14:26
PROVIDERS: ATTEND Family Medicine
DX: Z12.31 Encounter for screening mammogram for malignant neoplasm of breast (principal); Z80.3 Family history of malignant neoplasm of breast
CPT/HCPCS: 77063; 77067

== ENCOUNTER → 2023-09-23 | Outpatient (CLI) | payer OTHER ==
[2023-09-23 16:08] LABS: ALT 18 U/L (8-44); AST 18 U/L (13-35); BUN/Creat Ratio 14.22 Ratio (12.00-20.00); Blood Urea Nitrogen 12.8 mg/dL (9.0-27.0); Calcium 9.9 mg/dL (8.7-10.3); Carbon Dioxide 27.7 mmol/L (21.6-31.8); Chloride 103 mmol/L (96-109); Chol/HDL Ratio 2.79 Ratio; Glucose 77 mg/dL (70-110); LDL Cholesterol,Calculated 124.7 mg/dL (0.0-131.0); Potassium 4.3 mmol/L (3.5-5.5); Sodium 140 mmol/L (135-145)
== END | disposition home or self-care (01) ==
LOC: LABWHC1 09:53
PROVIDERS: ATTEND Student in an Organized Health Care Education/Training Program
DX: E78.2 Mixed hyperlipidemia (principal)
CPT/HCPCS: 36415; 80048; 80061; 83036; 84450; 84460

== ENCOUNTER → 2024-11-19 | Outpatient (CLI) | payer OTHER ==
--- NOTE | 2024-11-19 11:36 | XR ---
EXAMINATION TYPE: XR chest 2V DATE OF EXAM: 11/19/2024 10:51 AM COMPARISON: 03/31/2021 CLINICAL INDICATION: Female, 49 years old with history of R051,J180 ACUTE COUGH,BRONCHOPNEUMONIA, TECHNIQUE: XR chest 2V view(s) obtained. FINDINGS: The heart size is normal. The pulmonary vasculature is normal. The lungs are clear. IMPRESSION: 1. No acute pulmonary process. [facility], , 11/19/2024 11:34 AM
== END | disposition home or self-care (01) ==
LOC: RADXRYALE 09:58
PROVIDERS: ATTEND Physician Assistant Medical
DX: J18.0 Bronchopneumonia, unspecified organism (principal)
CPT/HCPCS: 71046